=== PATIENT | female | born 1995 | race Caucasian/White ===

== ENCOUNTER 2018-09-15 04:51 | Emergency (ER) | payer SELFPAY ==
--- NOTE | 2018-09-15 05:03 | EDPHY ---
H & P Stated Complaint: Abdominal pain Time Seen by Provider: 09/15/18 05:04 HPI/ROS: CHIEF COMPLAINT: Abdominal pain since 2:30 p.m. Yesterday HISTORY OF PRESENT ILLNESS: This is a previously healthy 22-year-old female who felt her usual self yesterday at noon having had lunch. She was engage in consensual intercourse at around 2:00 p.m. At around 2:30 p.m. She began having a mild suprapubic discomfort right equals left that was steady and relentless and getting worse over time ever since. At around 6:00 p.m. She started noticing the pain seemed to increase and expand to encompass the entire abdomen as well as bilateral shoulders however the right shoulder is what is pleuritic in nature. In particular she has not had any recent falls or injuries. With this pain in the middle the night it is so severe that she has to walk with a shuffling gait as well as hunched over. She has not tried anything to make it get better. Last bowel movement: Yesterday, as she often will get diarrhea toward her menses however has not noticed any this week. There has been no undue straining at the stool Last menstrual period: Currently. Started spotting. She tends to be rather irregular however typically gets her menses at the end of month to the 1st of the month. She is sexually active without contraception. No hx of anemia. x No prior abdominal surgeries. REVIEW OF SYSTEMS: Constitutional: No fever, no chills. Eyes: No discharge ENT: No sore throat. Cardiovascular: No chest pain, no palpitations. Respiratory: No cough, shortness of breath, or wheezing. Gastrointestinal: See above Genitourinary: No hematuria or frequency. Musculoskeletal: No back pain. Skin: No rashes. Neurological: No headache. A 10 system review of systems was performed and is negative except for the noted findings in the HPI. Source: Patient - Personal History LMP (Females 10-55): Now (She is spotting. menses irregular, usually end of month.) - Medical/Surgical History Hx Asthma: No Hx Chronic Respiratory Disease: No Hx Diabetes: No Hx Cardiac Disease: No Hx Renal Disease: No Hx Cirrhosis: No Hx Alcoholism: No Hx HIV/AIDS: No Hx Splenectomy or Spleen Trauma: No - Family History Significant Family History: No pertinent family hx - Social History Alcohol Use: Occasionally Drug Use: None - Physical Exam Exam: General Appearance: Alert, moderate distress as she appears in pain. Afebrile. Normal phonation. No respiratory distress. She looks pale. Eyes: Pupils equal and round no conjunctival pallor or conjunctival injection. No icterus ENT, Mouth: Mucous membranes [slightly dry] Pharynx without erythema or exudate. TM Clear. Neck: No adenopathy. Supple. No JVD. Trachea in midline. Respiratory: There are no retractions, lungs are clear to auscultation. Cardiovascular: Regular rate and rhythm, no murmur Abdomen: She is tender in all 4 quadrants but seems to be maximally in so on her report on the right lower quadrant. The abdomen itself appears distended for someone who is this lean. Neurological: Ox3. No motor weakness. Sensation intact. Gait nl. Skin: Warm and dry, no rashes. Musculoskeletal: No joint swelling. Extremities: No edema. Homans sign negative. No cords. Psychiatric: Normal affect. Allergies/Adverse Reactions: No Known Allergies Allergy (Unverified 09/15/18 04:59) Home Medications: Medication Instructions Recorded NK [No Known Home Meds] 09/15/18 Medical Decision Making ED Course/Re-evaluation: On initial examination she appeared quite uncomfortable. Further, with involvement of pain in the trapezius region that was bilateral however right- sided pleuritic, concern was for intra-abdominal catastrophe leading to hemorrhage.. An IV established and labs arranged. She is given fluids. However, as she was up to the bathroom to give us a urine she became near syncopal and was having to be supported by the staff. Thus as we need to know the status of her urine immediately, the family gas with utilized to get this resolved. Fortunately, the test was negative as she was giving IV fluids and IV titration of fentanyl for her pain. She continued to look pasty and diaphoretic at times. However blood pressure orthostatics of laying versus sitting in a semi-Beatty's position was unchanged. Bedside ultrasound was performed by me early on in the clinical course and was negative for intra-abdominal fluid, suggestion of gallstones seen but nothing definitive, as arranged much overlying bowel gas. Given her pasty color and near-syncope with involvement in the shoulder blade region 2 IVs were started. Laboratory studies revealed the following: Anemia, normocytic normochromic. White count 13.7. Negative urine test. Negative urinalysis Essentially normal comp panel with a slightly elevated glucose of 128 and a low calcium of 8.2 notably, liver function tests are normal The CT scan came back however there is no facial reading as of change of shift at 7:00 a.m.. I was concerned for fluid along the cutter and around the spleen to suggest hemorrhagic ovarian cyst as there was a mass in the right lower quadrant. I discussed case with Dr. Timmons assumed care. At this point in time she remained hemodynamically unchanged however her blood pressure was maintained she has had 1.5 L fluid. Differential Diagnosis: Diagnostic considerations include, but are not limited to, the following, 5this represents a partial list of diagnoses considered These considerations are based on history, physical exam, past history, reassessment and diagnostic testing: Ectopic , hemorrhagic ovarian cyst rupture, cholecystitis, pancreatitis , gastritis, constipation, ruptured ovarian cyst, torsion of the ovary. Departure - Departure Clinical Impression: Hemorrhagic ovarian cyst Abdominal pain Qualifiers: Abdominal location: right lower quadrant Qualified Code(s): R10.31 - Right lower quadrant pain Condition: Good
[2018-09-15] MEDS: NS 500 ML IV ONE ×2 (05:30→05:35)
[2018-09-15] MEDS ORDERED: fentaNYL 100 MCG/2 ML INJ IVP ONE ×2 (05:34→06:15)
[2018-09-15] MEDS ORDERED: NS 1,000 ML IV ONE ×2 (06:22→06:26)
[2018-09-15] MEDS ORDERED: IOPAMIDOL (ISOVUE-300) 100 ML BTL ONE (06:26)
[2018-09-15] MEDS ORDERED: HYDROmorphONE/DILAUDID 1 MG/ML INJ IVP ONE (07:01)
[2018-09-15 07:52] VITALS: BP 114/66
== END 2018-09-15 07:45 | disposition short-term general hospital (02) ==
LOC: CED 04:51
DX: N83.201 Unspecified ovarian cyst, right side (principal)
CPT/HCPCS: 74177-PO; 80053-ER; 81025-ER; 85025-QW-ER; 96361-ER; 96374-ER; 96376-ER; 99285-ER; J1170; J3010; Q9967